=== PATIENT | male | born 1990 | race Caucasian/White ===

== ENCOUNTER 2017-03-13 17:25 | Emergency (ER) | payer MEDICAID ==
[~2017-03-13] VITALS: Ht 188 cm; Wt 90.7 kg
[2017-03-13 17:27] VITALS: BP_SYST 164
[2017-03-13] MEDS ORDERED: NACL 0.9% 1,000 ML IV ONE ×2 (17:38→17:45)
[2017-03-13] MEDS ORDERED: ONDANSETRON HCL 4 MG/2 ML VIAL IVP ONE ×2 (17:45→20:30)
[2017-03-13] MEDS ORDERED: KETOROLAC TROMETHAMINE 30 MG VIAL IVP ONE (17:45)
[2017-03-13 18:07] LABS: BASOPHILS # (AUTO) 0.2 K/uL (0.0-0.2); BASOPHILS % (AUTO) 1.9 % (0.0-2.0); HEMATOCRIT 47.5 % (36-54); HEMOGLOBIN 15.8 g/dL (14.0-18.0); LYMPHOCYTES # (AUTO) 1.1 K/uL (1.0-5.5); LYMPHOCYTES % (AUTO) 8.5 % (20.5-51.5); MEAN CORPUSCULAR HEMOGLOBIN 32 pg (27-31); MEAN CORPUSCULAR HGB CONC 33 % (32-36); MEAN CORPUSCULAR VOLUME 95 fL (79.0-98.0); MONOCYTES # (AUTO) 0.6 K/uL (0.0-1.0); NEUTROPHILS # (AUTO) 10.9 K/uL (1.8-7.7); NEUTROPHILS % (AUTO) 84.6 % (40.0-70.0); PLATELET COUNT (AUTO) 262 K/uL (130-430); RED CELL DISTRIBUTION WIDTH 13.6 % (9.0-15.0); WHITE BLOOD COUNT (AUTO) 12.8 K/uL (4.8-10.8)
[2017-03-13 18:09] LABS: CALCIUM 10.5 mg/dL (8.4-11.0); CREATININE 1.2 mg/dL (0.55-1.30); POTASSIUM 3.5 mmol/L (3.5-5.1)
[2017-03-13 18:13] LABS: ALBUMIN 4.9 g/dL (3.4-4.8); TOTAL BILIRUBIN 0.3 mg/dL (0.0-1.0); TOTAL PROTEIN, SERUM 9.4 g/dL (6.4-8.3)
[2017-03-13] MEDS ORDERED: LORazepam 2 MG/ML VIAL (FOR ER USE) IVP ONE (19:00)
[2017-03-13] MEDS ORDERED: LORazepam 2 MG/ML VIAL (FOR ER USE) ONE (19:05)
[2017-03-13 20:00] LABS: BILIRUBIN,URINE NEGATIVE (NEGATIVE); CLARITY/URINE SL HAZY (CLEAR); COLOR,URINE YELLOW (YELLOW); GLUCOSE,URINE NEGATIVE (NEGATIVE); KETONES,URINE 1+ (NEGATIVE); LEUKOCYTE ESTERASE ,URINE NEGATIVE (NEGATIVE); NITRITE, URINE NEGATIVE (NEGATIVE); PROTEIN URINE 1+ (NEGATIVE); UROBILINOGEN,URINE 0.2 (0.2-1.0)
[2017-03-13 20:11] LABS: BLOOD, URINE TRACE (NEGATIVE)
[2017-03-13 20:12] LABS: BARBITURATE, URINE NEGATIVE (NEG <=200)
[2017-03-13 20:13] LABS: BENZODIAZEPINE, URINE POSITIVE (NEG <=150); CANNABINOID, URINE POSITIVE (NEG <=50); COCAINE, URINE NEGATIVE (NEG <=150); METHAMPHETAMINES SCREEN,URINE NEGATIVE (NEG <=500); OPIATE, URINE NEGATIVE (NEG <=100); PHENCYCLIDINE SCREEN,URINE NEGATIVE (NEG <=25); UR TRICYCLIC ANTIDEPRESSANTS NEGATIVE (NEG <=300); URINE AMPHETAMINE NEGATIVE (NEG <=500); URINE METHADONE POSITIVE (NEG <=200); URINE OXYCODONE SCREEN NEGATIVE (NEG <=100); URINE PROPOXYPHENE SCREEN NEGATIVE (NEG <=300)
[2017-03-13 20:14] LABS: RBC,URINE 0-3 /HPF (0-3); WBC,URINE 20-50 /HPF (0-3)
[2017-03-13 20:15] LABS: BACTERIA,URINE FEW /HPF (None Seen); MUCUS,URINE 1+ /LPF (None Seen); OTHER CASTS, URINE WBC CASTS 1+ /LPF (None Seen)
[2017-03-13] MEDS ORDERED: levETIRAcetam 1,000 MG in NS 100 ML IV ONE (20:30)
[2017-03-13 22:05] VITALS: BP_SYST 154
== END 2017-03-13 22:05 | disposition home or self-care (01) ==
LOC: SED 17:25
DX: R11.10 Vomiting, unspecified (principal); R10.84 Generalized abdominal pain; R55 Syncope and collapse
CPT/HCPCS: 36415; 70450-TC; 80053; 80307; 81000-TC; 82962; 83690-TC; 85025; 85610-TC; 85730-TC; 87086; 96361; 96365; 96375; 96376; 99285; G0482; J1885; J1953; J2060; J2405; J7030

== ENCOUNTER 2017-03-17 08:22 | Inpatient (IN) | payer MEDICAID ==
[~2017-03-17] VITALS: Ht 188 cm; Wt 90.7 kg
[2017-03-17 08:22] VITALS: BP_SYST 166
[2017-03-17 09:50] LABS: BASOPHILS % (AUTO) 0.4 % (0.0-2.0); EOSINOPHILS % (AUTO) 0.1 % (0.0-4.0); HEMATOCRIT 45.8 % (36-54); HEMOGLOBIN 14.9 g/dL (14.0-18.0); LYMPHOCYTES # (AUTO) 1.6 K/uL (1.0-5.5); LYMPHOCYTES % (AUTO) 21.6 % (20.5-51.5); MEAN CORPUSCULAR HEMOGLOBIN 31 pg (27-31); MEAN CORPUSCULAR HGB CONC 33 % (32-36); MEAN CORPUSCULAR VOLUME 95 fL (79.0-98.0); MONOCYTES # (AUTO) 0.6 K/uL (0.0-1.0); MONOCYTES % (AUTO) 7.8 % (1.7-9.3); NEUTROPHILS # (AUTO) 5.1 K/uL (1.8-7.7); NEUTROPHILS % (AUTO) 70.1 % (40.0-70.0); PLATELET COUNT (AUTO) 321 K/uL (130-430); RED BLOOD CELL COUNT(AUTO) 4.83 MIL/uL (4.2-6.2); RED CELL DISTRIBUTION WIDTH 13.4 % (9.0-15.0); WHITE BLOOD COUNT (AUTO) 7.3 K/uL (4.8-10.8)
[2017-03-17 10:13] LABS: ANION GAP 9 (5-15); CALCIUM 9.7 mg/dL (8.4-11.0); CHLORIDE 104 mmol/L (98-107); CREATININE 1.03 mg/dL (0.55-1.30); GLUCOSE 118 mg/dL (70-99); POTASSIUM 3.5 mmol/L (3.5-5.1); SODIUM SERUM 141 mmol/L (136-145); UREA NITROGEN, BLOOD 18 mg/dL (8-21)
[2017-03-17 10:19] LABS: GFR AFRICAN AMERICAN 112 mL/min (>90)
[2017-03-17 10:21] LABS: ALANINE AMINOTRANSFERASE 144 U/L (12-78); ALBUMIN 4.6 g/dL (3.4-4.8); ASPARTATE AMINOTRANSFERASE 70 U/L (10-37); CREATINE KINASE, TOTAL 776 U/L (39-308); TOTAL BILIRUBIN 0.6 mg/dL (0.0-1.0); TOTAL PROTEIN, SERUM 9.1 g/dL (6.4-8.3)
[2017-03-17 10:24] LABS: ALCOHOL, BLOOD < 3 mg/dL (<10)
[2017-03-17 10:36] LABS: BLOOD, URINE NEGATIVE (NEGATIVE); CLARITY/URINE CLEAR (CLEAR); COLOR,URINE YELLOW (YELLOW); GLUCOSE,URINE NEGATIVE (NEGATIVE); KETONES,URINE 3+ (NEGATIVE); LEUKOCYTE ESTERASE ,URINE NEGATIVE (NEGATIVE); NITRITE, URINE NEGATIVE (NEGATIVE); PROTEIN URINE 2+ (NEGATIVE)
[2017-03-17 10:46] LABS: BILIRUBIN,URINE 1+ (NEGATIVE)
[2017-03-17 10:48] LABS: ACETAMINOPHEN < 1 ug/mL (1-30); CKMB RELATIVE INDEX 0.4 (0.0-2.9); CREATINE KINASE MB 3.3 ng/mL (0-3.6); SALICYLATE 3 mg/dL (3-30)
[2017-03-17 10:50] LABS: BACTERIA,URINE MODERATE /HPF (None Seen); RBC,URINE 0-3 /HPF (0-3); WBC,URINE 0-3 /HPF (0-3)
[2017-03-17 10:51] LABS: COARSE GRANULAR CASTS,URINE 0-10 /LPF (None Seen)
[2017-03-17 10:52] LABS: BARBITURATE, URINE NEGATIVE (NEG <=200); BENZODIAZEPINE, URINE POSITIVE (NEG <=150); METHAMPHETAMINES SCREEN,URINE NEGATIVE (NEG <=500); URINE AMPHETAMINE NEGATIVE (NEG <=500); URINE METHADONE POSITIVE (NEG <=200)
[2017-03-17 10:53] LABS: CANNABINOID, URINE POSITIVE (NEG <=50); COCAINE, URINE NEGATIVE (NEG <=150); OPIATE, URINE NEGATIVE (NEG <=100); PHENCYCLIDINE SCREEN,URINE NEGATIVE (NEG <=25); UR TRICYCLIC ANTIDEPRESSANTS NEGATIVE (NEG <=300); URINE OXYCODONE SCREEN NEGATIVE (NEG <=100); URINE PROPOXYPHENE SCREEN NEGATIVE (NEG <=300)
[2017-03-17] MEDS ORDERED: METH40TA14 PO (10:57)
[2017-03-17 11:46] VITALS: BP_SYST 181
[2017-03-17] MEDS: LORazepam 2 MG/ML VIAL IVP PRN ×2 (14:39→21:34)
[2017-03-17] MEDS ORDERED: METHADONE HCL 10 MG TABLET PO ONE ×2 (15:15→15:45)
[2017-03-17] MEDS ORDERED: MORPHINE 4 MG/ML INJ. SYRINGE IVP PRN (15:15)
[2017-03-17] MEDS ORDERED: ONDANSETRON HCL 4 MG/2 ML VIAL IVP PRN (15:15)
[2017-03-17] MEDS ORDERED: MORPHINE 4 MG/ML INJ. SYRINGE ONE (15:20)
[2017-03-17 18:26] VITALS: BP_SYST 143
[2017-03-17] MEDS ORDERED: cloNIDine HCL 0.1 MG TABLET PO PRN (19:00)
[2017-03-17] MEDS ORDERED: cloNIDine HCL 0.1 MG TABLET ONE (19:00)
[2017-03-17 19:40] VITALS: BP_SYST 150
[2017-03-18] MEDS: LR 1,000 ML IV SCH ×3 (00:13→19:00)
[2017-03-18] MEDS: cloNIDine HCL 0.1 MG TABLET PO SCH ×3 (00:13→21:04)
[2017-03-18 00:17] VITALS: BP_SYST 152
[2017-03-18] MEDS: LORazepam 2 MG/ML VIAL IVP PRN ×2 (04:35→21:03)
[2017-03-18 05:17] VITALS: BP_SYST 137
[2017-03-18 06:44] LABS: BASOPHILS % (AUTO) 0.5 % (0.0-2.0); EOSINOPHILS % (AUTO) 0.3 % (0.0-4.0); HEMATOCRIT 44.6 % (36-54); HEMOGLOBIN 14.7 g/dL (14.0-18.0); LYMPHOCYTES # (AUTO) 2.1 K/uL (1.0-5.5); LYMPHOCYTES % (AUTO) 29.1 % (20.5-51.5); MEAN CORPUSCULAR HEMOGLOBIN 31 pg (27-31); MEAN CORPUSCULAR HGB CONC 33 % (32-36); MEAN CORPUSCULAR VOLUME 95 fL (79.0-98.0); MONOCYTES # (AUTO) 0.8 K/uL (0.0-1.0); MONOCYTES % (AUTO) 11.2 % (1.7-9.3); NEUTROPHILS # (AUTO) 4.3 K/uL (1.8-7.7); NEUTROPHILS % (AUTO) 58.9 % (40.0-70.0); PLATELET COUNT (AUTO) 319 K/uL (130-430); RED BLOOD CELL COUNT(AUTO) 4.68 MIL/uL (4.2-6.2); RED CELL DISTRIBUTION WIDTH 13.4 % (9.0-15.0); WHITE BLOOD COUNT (AUTO) 7.2 K/uL (4.8-10.8)
[2017-03-18 07:18] LABS: ALBUMIN 4.1 g/dL (3.4-4.8); CALCIUM 9.4 mg/dL (8.4-11.0); CREATININE 0.96 mg/dL (0.55-1.30); POTASSIUM 3.1 mmol/L (3.5-5.1); TOTAL BILIRUBIN 0.8 mg/dL (0.0-1.0); TOTAL PROTEIN, SERUM 8.4 g/dL (6.4-8.3)
[2017-03-18 08:07] VITALS: BP_SYST 139
[2017-03-18] MEDS ORDERED: METHADONE HCL 10 MG TABLET PO SCH (09:00)
[2017-03-18 09:24] LABS: ERYTHROCYTE SEDIMENTATION RATE 7 MM/HR (0-15)
[2017-03-18] MEDS: METHADONE HCL 10 MG TABLET PO SCH (09:40)
[2017-03-18 12:34] VITALS: BP_SYST 145
[2017-03-18] MEDS ORDERED: POTASSIUM CHLORIDE 20 MEQ TAB.PRT.SR PO ONE (14:15)
[2017-03-18 16:02] VITALS: BP_SYST 131
[2017-03-18 20:10] VITALS: BP_SYST 150
[2017-03-19 00:45] VITALS: BP_SYST 146
[2017-03-19] MEDS: LR 1,000 ML IV SCH ×3 (04:00→22:39)
[2017-03-19 04:31] VITALS: BP_SYST 143
[2017-03-19 08:30] VITALS: BP_SYST 160
[2017-03-19] MEDS: POTASSIUM CHLORIDE 20 MEQ TAB.PRT.SR PO SCH (09:29)
[2017-03-19] MEDS: cloNIDine HCL 0.1 MG TABLET PO SCH ×3 (09:29→22:40)
[2017-03-19] MEDS: METHADONE HCL 10 MG TABLET PO SCH (09:30)
[2017-03-19 12:08] VITALS: BP_SYST 146
[2017-03-19 16:49] VITALS: BP_SYST 154
[2017-03-19] MEDS: LORazepam 2 MG/ML VIAL IVP PRN ×2 (17:41→22:40)
[2017-03-19 20:49] VITALS: BP_SYST 137
[2017-03-20] VITALS (7 sets, daily range): BP systolic 131–152
[2017-03-20 06:25] LABS: BASOPHILS % (AUTO) 0.6 % (0.0-2.0); EOSINOPHILS # (AUTO) 0.3 K/uL (0.0-0.4); EOSINOPHILS % (AUTO) 4.2 % (0.0-4.0); HEMATOCRIT 40.2 % (36-54); HEMOGLOBIN 13.4 g/dL (14.0-18.0); LYMPHOCYTES # (AUTO) 2.6 K/uL (1.0-5.5); LYMPHOCYTES % (AUTO) 36.3 % (20.5-51.5); MEAN CORPUSCULAR HEMOGLOBIN 32 pg (27-31); MEAN CORPUSCULAR HGB CONC 33 % (32-36); MEAN CORPUSCULAR VOLUME 95 fL (79.0-98.0); MONOCYTES # (AUTO) 0.6 K/uL (0.0-1.0); MONOCYTES % (AUTO) 8.2 % (1.7-9.3); NEUTROPHILS # (AUTO) 3.5 K/uL (1.8-7.7); NEUTROPHILS % (AUTO) 50.7 % (40.0-70.0); PLATELET COUNT (AUTO) 231 K/uL (130-430); RED BLOOD CELL COUNT(AUTO) 4.22 MIL/uL (4.2-6.2); RED CELL DISTRIBUTION WIDTH 12.9 % (9.0-15.0)
[2017-03-20 06:37] LABS: CALCIUM 8.6 mg/dL (8.4-11.0); CREATININE 0.95 mg/dL (0.55-1.30)
[2017-03-20 07:07] LABS: POTASSIUM 2.8 mmol/L (3.5-5.1)
[2017-03-20] MEDS: LORazepam 2 MG/ML VIAL IVP PRN ×3 (08:40→20:24)
[2017-03-20] MEDS: METHADONE HCL 10 MG TABLET PO SCH (08:40)
[2017-03-20] MEDS: POTASSIUM CHLORIDE 20 MEQ TAB.PRT.SR PO SCH ×2 (08:40→20:32)
[2017-03-20] MEDS: cloNIDine HCL 0.1 MG TABLET PO SCH ×3 (08:41→20:31)
[2017-03-20] MEDS ORDERED: GADOPENTETATE DIMEGLUMINE 15 ML VIAL IV ONE (09:03)
[2017-03-20] MEDS: LR 1,000 ML IV SCH ×3 (12:44→22:56)
[2017-03-20] MEDS ORDERED: POTASSIUM CHLORIDE 20 MEQ TAB.PRT.SR PO ONE (14:15)
[2017-03-20] MEDS ORDERED: POTASSIUM CHLORIDE 20 MEQ TAB.PRT.SR PO SCH (15:00)
[2017-03-20] MEDS ORDERED: MAGNESIUM OXIDE 400 MG TABLET PO ONE (19:15)
[2017-03-21] VITALS (7 sets, daily range): BP systolic 125–150
[2017-03-21] MEDS: LORazepam 2 MG/ML VIAL IVP PRN ×4 (04:45→22:54)
[2017-03-21] MEDS: METHADONE HCL 10 MG TABLET PO SCH (08:36)
[2017-03-21] MEDS: POTASSIUM CHLORIDE 20 MEQ TAB.PRT.SR PO SCH ×2 (08:36→20:21)
[2017-03-21] MEDS: MAGNESIUM OXIDE 400 MG TABLET PO SCH ×2 (08:36→20:21)
[2017-03-21] MEDS: cloNIDine HCL 0.1 MG TABLET PO SCH ×3 (08:36→20:20)
[2017-03-22 00:51] VITALS: BP_SYST 122
[2017-03-22 04:48] VITALS: BP_SYST 144
[2017-03-22 06:44] LABS: CALCIUM 8.9 mg/dL (8.4-11.0); CREATININE 0.99 mg/dL (0.55-1.30); POTASSIUM 3.6 mmol/L (3.5-5.1)
[2017-03-22] MEDS: METHADONE HCL 10 MG TABLET PO SCH (08:03)
[2017-03-22] MEDS: cloNIDine HCL 0.1 MG TABLET PO SCH ×2 (08:03→14:30)
[2017-03-22] MEDS: MAGNESIUM OXIDE 400 MG TABLET PO SCH (08:03)
[2017-03-22] MEDS: POTASSIUM CHLORIDE 20 MEQ TAB.PRT.SR PO SCH (08:03)
[2017-03-22 08:13] VITALS: BP_SYST 145
[2017-03-22] MEDS: LORazepam 2 MG/ML VIAL IVP PRN ×2 (09:32→14:30)
[2017-03-22 12:38] VITALS: BP_SYST 139
[2017-03-22 16:12] VITALS: BP_SYST 138
[2017-03-22] MEDS ORDERED: LORazepam 2 MG/ML VIAL IVP PRN (17:00)
[2017-03-22 17:19] VITALS: BP_SYST 138
== END 2017-03-22 18:26 | disposition home or self-care (01) | DRG 773 ==
LOC: SED 08:22 → STU 11:12 → SMU 03-19 16:42
PROVIDERS: ADMIT Internal Medicine; ATTEND Internal Medicine
DX: F11.23 Opioid dependence with withdrawal (principal); F19.20 Other psychoactive substance dependence, uncomplicated; G92 Toxic encephalopathy; I10 Essential (primary) hypertension; E87.6 Hypokalemia; F41.9 Anxiety disorder, unspecified; F32.9 Major depressive disorder, single episode, unspecified; E66.9 Obesity, unspecified; Z68.25 Body mass index [BMI] 25.0-25.9, adult; T50.905A Adverse effect of unspecified drugs, medicaments and biological substances, initial encounter; Y93.89 Activity, other specified; Y92.89 Other specified places as the place of occurrence of the external cause; Y99.8 Other external cause status
CPT/HCPCS: 36415; 70450-TC; 70553; 71010; 80048; 80053; 80307; 81000-TC; 82550-TC; 82553-TC; 82962; 83605; 83735-TC; 84132-TC; 84484; 85025; 85651-TC; 86140; 87040-TC; 87086; 93005; 95816; A9579; G0480; G0481; G0482; J2060; J2270; J7050; J7120

== ENCOUNTER 2018-05-22 06:54 | Emergency (ER) | payer MEDICAID ==
[~2018-05-22] VITALS: Ht 188 cm; Wt 106.6 kg
[~2018-05-22 06:54] MED LIST: METH40TA14 PO
[2018-05-22 07:04] VITALS: BP_SYST 150
== END 2018-05-22 08:37 | disposition home or self-care (01) ==
LOC: SED 06:54
DX: F13.239 Sedative, hypnotic or anxiolytic dependence with withdrawal, unspecified (principal); F41.9 Anxiety disorder, unspecified; G89.29 Other chronic pain; M54.9 Dorsalgia, unspecified
CPT/HCPCS: 99283

== ENCOUNTER 2019-06-22 14:21 | Emergency (ER) | payer MEDICAID ==
[~2019-06-22] VITALS: Ht 188 cm; Wt 104.3 kg
--- NOTE | 2019-06-22 14:23 | NUR ---
Patient to ER bed 3 to gown for evaluation. Side rails up. Report given to Justice MARISCAL.
[2019-06-22 14:24] VITALS: BP_SYST 127
--- NOTE | 2019-06-22 14:38 | NUR ---
RN has made contact with the pt , and Erin. this is a medical clearance to book. Pt has hx of back pain and anxiety. pt is stable now and stable on VS>
--- NOTE | 2019-06-22 14:43 | NUR ---
pt denies any problems today and is stable.
--- NOTE | 2019-06-22 14:43 | NUR ---
MD Mariscal has examined pt at bedside. pt is accompanied by lining strap closer. x2
--- NOTE | 2019-06-22 14:55 | NUR ---
Patient given written and verbal discharge instructions and verbalizes understanding. ER MD discussed with patient the results and treatment provided. Patient in stable condition. ID arm band removed. Patient educated on pain management and to follow up with PMD. Pain Scale 0/10. Opportunity for questions provided and answered. Medication side effect fact sheet provided.
[2019-06-22 14:57] VITALS: BP_SYST 124
== END 2019-06-22 14:57 ==
LOC: SED 14:21
DX: Z02.89 Encounter for other administrative examinations (principal)
CPT/HCPCS: 99283

== ENCOUNTER 2024-07-23 16:34 | Emergency (ER) | payer MEDICAID ==
[~2024-07-23] VITALS: Ht 188 cm; Wt 108.0 kg
[~2024-07-23 16:34] MED LIST changes: -METH40TA14 PO; +METH40TA2 PO
[2024-07-23 16:37] VITALS: BP_SYST 119; PULSE 60; RESP 17; TEMP 96.9; O2SAT 96
[2024-07-23] MEDS ORDERED: methylPREDNISolone SOD SUCC/PF 62.5 MG/ML VIAL IVP ONE (17:00)
[2024-07-23] MEDS: methylPREDNISolone SOD SUCC/PF 62.5 MG/ML VIAL IM ONE (17:14)
[2024-07-23] MEDS ORDERED: FLUO60CR TP (17:49)
[2024-07-23] MEDS ORDERED: PRED20TA PO (17:49)
[2024-07-23] MEDS ORDERED: LORA10TA7 PO (17:49)
[2024-07-23 18:04] VITALS: BP_SYST 119; PULSE 60; RESP 17; TEMP 96.9; O2SAT 96
== END 2024-07-23 18:06 | disposition home or self-care (01) ==
LOC: SED 16:34
DX: L20.9 Atopic dermatitis, unspecified (principal)
CPT/HCPCS: 96372; 99283; J2930